=== PATIENT | female | born 1955 | race Caucasian/White ===

== ENCOUNTER 2016-10-29 17:29 | Inpatient (IN) | payer BC ==
--- NOTE | 2016-10-29 17:59 | ED ---
General Adult HPI - General Chief complaint: Trauma Stated complaint: kicked by horse Time Seen by Provider: 10/29/16 17:40 Source: patient Mode of arrival: wheelchair Limitations: no limitations - History of Present Illness Initial comments: 61-year-old female presents with shortness of breath and pain in the right posterior chest. States about 40 minutes prior to arrival she was kicked by a horse once or twice. She is having some difficulty breathing and some diaphoresis. No focal numbness or weakness. No nausea no vomiting. No other injury elsewhere. History of hypertension and hypothyroidism. - Related Data Home Medications Medication Instructions Recorded Confirmed Atorvastatin [Lipitor] 10 mg PO HS 10/29/16 10/29/16 Escitalopram [Lexapro] 5 mg PO DAILY 10/29/16 10/29/16 Estradiol/Norethindrone Acet 1 patch TRANSDERM MOTH 10/29/16 10/29/16 [Combipatch 0.05-0.14 mg Ptch] Folic Acid 1 mg PO DAILY 10/29/16 10/29/16 Levothyroxine Sodium [Synthroid] 112 mcg PO DAILY 10/29/16 10/29/16 Liothyronine Sodium [Cytomel] 5 mcg PO DAILY 10/29/16 10/29/16 Losartan [Cozaar] 50 mg PO HS 10/29/16 10/29/16 Losartan [Cozaar] 75 mg PO DAILY 10/29/16 10/29/16 Montelukast [Singulair] 10 mg PO DAILY 10/29/16 10/29/16 Triamterene-Hctz 37.5-25Mg 1 cap PO DAILY 10/29/16 10/29/16 [Dyazide 37.5-25 Capsule] Zolpidem [Ambien] 5 mg PO HS PRN 10/29/16 10/29/16 Allergies Allergy/AdvReac Type Severity Reaction Status Date / Time Penicillins Allergy Rash/Hives Verified 10/29/16 18:22 Review of Systems ROS Statement: Those systems with pertinent positive or pertinent negative responses have been documented in the HPI. ROS Other: All systems not noted in ROS Statement are negative. Constitutional: Denies: fever, chills Eyes: Denies: eye pain ENT: Denies: ear pain, throat pain Respiratory: Reports: dyspnea. Denies: cough, wheezes Cardiovascular: Reports: chest pain. Denies: edema Gastrointestinal: Denies: abdominal pain, nausea, vomiting Genitourinary: Denies: urgency, dysuria Skin: Denies: rash Neurological: Denies: headache Psychiatric: Denies: anxiety, depression Hematological/Lymphatic: Denies: easy bleeding, easy bruising Past Medical History Past Medical History: Hyperlipidemia, Hypertension, Thyroid Disorder History of Any Multi-Drug Resistant Organisms: None Reported Past Surgical History: Orthopedic Surgery Past Psychological History: No Psychological Hx Reported Smoking Status: Never smoker Past Alcohol Use History: Occasional Past Drug Use History: None Reported General Exam Limitations: no limitations General appearance: alert Head exam: Present: atraumatic Eye exam: Present: PERRL, EOMI ENT exam: Present: normal oropharynx, mucous membranes moist, TM's normal bilaterally Respiratory exam: Present: decreased breath sounds (On right few crackles present) Cardiovascular Exam: Present: regular rate, normal heart sounds GI/Abdominal exam: Present: soft. Absent: tenderness Neurological exam: Present: alert, CN II-XII intact Psychiatric exam: Present: normal affect, normal mood Skin exam: Present: warm, dry, other (Large bruise area on the upper right posterior chest wall and there appears to be 2 areas one just at the upper level of the scapula.) Course Vital Signs 10/29/16 10/29/16 10/29/16 17:31 17:56 18:15 Temperature 97.7 F Pulse Rate 67 60 Respiratory 20 24 22 Rate Blood Pressure 111/63 109/55 O2 Sat by Pulse 94 L 98 Oximetry 10/29/16 10/29/16 10/29/16 18:48 19:13 19:57 Temperature Pulse Rate 66 62 73 Respiratory 18 18 20 Rate Blood Pressure 115/66 112/63 144/74 O2 Sat by Pulse 100 98 96 Oximetry 10/29/16 20:00 Temperature Pulse Rate 62 Respiratory 18 Rate Blood Pressure 139/72 O2 Sat by Pulse 98 Oximetry Procedures - Chest Tube Insertion Consent Obtained: verbal consent Time Out Performed: No Indication: Pneumothorax Placed on monitor/pulse oximetry: Yes Site Prep: Chloroprep Local Anesthesia: Lidocaine 1% Insertion Site: 5th Intercostal Space, Midaxillary Scalpel: #10 Open into Pleural Space Using: Trocar, Hemostats Tube Size (Greek): Other (24) Returns: Other (No air blood return) Type of Suture: Polyester Dressing Applied: Petroleum Gauze Attached to Suction: Yes Type of Suction: Pleuravac Repeat X-ray Results: Other (Lungs appears to be mostly inflated except for about 10% review with radiologist and the CAT scan is ordered regarding potential other trauma) Patient Tolerated Procedure: well Medical Decision Making - Medical Decision Making Dr. Jade was here to see the patient chest tube was placed on from 40% about 15% pneumothorax Dr. Jade spoke with Dr. Martin, observe most likely will reexpand he will review tomorrow. Patient will be admitted. - Lab Data Result diagrams: 10/29/16 17:45 10/29/16 17:45 Lab Results 10/29/16 10/29/16 10/29/16 Range/Units 17:45 17:45 17:45 WBC 12.3 H (3.8-10.6) k/uL RBC 4.69 (3.80-5.40) m/uL Hgb 14.7 (11.4-16.0) gm/dL Hct 43.5 (34.0-46.0) % MCV 92.8 (80.0-100.0) fL MCH 31.4 (25.0-35.0) pg MCHC 33.9 (31.0-37.0) g/dL RDW 12.5 (11.5-15.5) % Plt Count 384 (150-450) k/uL Neutrophils % 59 % Lymphocytes % 32 % Monocytes % 4 % Eosinophils % 2 % Basophils % 1 % Neutrophils # 7.2 (1.3-7.7) k/uL Lymphocytes # 4.0 (1.0-4.8) k/uL Monocytes # 0.5 (0-1.0) k/uL Eosinophils # 0.2 (0-0.7) k/uL Basophils # 0.1 (0-0.2) k/uL Sodium 141 (137-145) mmol/L Potassium 3.4 L (3.5-5.1) mmol/L Chloride 103 (98-107) mmol/L Carbon Dioxide 25 (22-30) mmol/L Anion Gap 13 mmol/L BUN 24 H (7-17) mg/dL Creatinine 1.02 (0.52-1.04) mg/dL Est GFR (MDRD) Af Amer >60 (>60 ml/min/1.73 sqM) Est GFR (MDRD) Non-Af 55 (>60 ml/min/1.73 sqM) Glucose 112 H (74-99) mg/dL Calcium 9.6 (8.4-10.2) mg/dL Total Bilirubin 0.6 (0.2-1.3) mg/dL AST 30 (14-36) U/L ALT 42 (9-52) U/L Alkaline Phosphatase 68 (38-126) U/L Total Protein 7.5 (6.3-8.2) g/dL Albumin 4.7 (3.5-5.0) g/dL Blood Type B Positive Blood Type Confirm Blood Type Recheck CABO Indicated Antibody Screen NEGATIVE Spec Expiration Date 11/01/2016 - 234410/29/16 Range/Units 19:05 WBC (3.8-10.6) k/uL RBC (3.80-5.40) m/uL Hgb (11.4-16.0) gm/dL Hct (34.0-46.0) % MCV (80.0-100.0) fL MCH (25.0-35.0) pg MCHC (31.0-37.0) g/dL RDW (11.5-15.5) % Plt Count (150-450) k/uL Neutrophils % % Lymphocytes % % Monocytes % % Eosinophils % % Basophils % % Neutrophils # (1.3-7.7) k/uL Lymphocytes # (1.0-4.8) k/uL Monocytes # (0-1.0) k/uL Eosinophils # (0-0.7) k/uL Basophils # (0-0.2) k/uL Sodium (137-145) mmol/L Potassium (3.5-5.1) mmol/L Chloride (98-107) mmol/L Carbon Dioxide (22-30) mmol/L Anion Gap mmol/L BUN (7-17) mg/dL Creatinine (0.52-1.04) mg/dL Est GFR (MDRD) Af Amer (>60 ml/min/1.73 sqM) Est GFR (MDRD) Non-Af (>60 ml/min/1.73 sqM) Glucose (74-99) mg/dL Calcium (8.4-10.2) mg/dL Total Bilirubin (0.2-1.3) mg/dL AST (14-36) U/L ALT (9-52) U/L Alkaline Phosphatase (38-126) U/L Total Protein (6.3-8.2) g/dL Albumin (3.5-5.0) g/dL Blood Type Blood Type Confirm B Positive Blood Type Recheck Antibody Screen Spec Expiration Date - EKG Data -: EKG Interpreted by Me 10/29/16 18:21 EKG 10/30/1999 1718. Ventricular rate 61 bpm, MO interval 140 ms, QRS duration 96 ms, QT interval 426 ms normal sinus rhythm rightward axis - Radiology Data Radiology results: report reviewed, image reviewed Interpreted by me: 25-30% pneumothorax on the right 30-40% pneumothorax on the right Follow-up residual pneumothorax about 15% Computed tomography scan there is persistent small right anterior nondependent pneumothorax estimated 10-15%. Despite chest tube placement there is right greater than left bibasilar atelectasis there is acute displaced right posterior ninth rib fracture and acute nondisplaced right posterior 10th rib fracture Critical Care Time Critical Care Time: Yes Total Critical Care Time: 60 Disposition Clinical Impression: Pneumothorax, Ribs, multiple fractures Disposition: ADMITTED IP TO THIS [facility] Condition: Good Referrals: Fatimah He MD [Primary Care Provider] - 1-2 days Time of Disposition: 20:50
[2016-10-29] MEDS: ONDANSETRON 4 MG/2 ML VIAL IVP STA ×2 (18:13→18:28)
[2016-10-29] MEDS: HYDROmorphone 1 MG/ML 1 ML SYRINGE IVP STA ×3 (18:14→20:04)
--- NOTE | 2016-10-29 18:24 | XR ---
EXAMINATION TYPE: XR chest 1V portable DATE OF EXAM: 10/29/2016 COMPARISON: NONE HISTORY: Chest pain after trauma injury. TECHNIQUE: Single AP portable frontal upright view of the chest is obtained. FINDINGS: There is moderate right apical pneumothorax estimated 30-40%. There is bibasilar opacity f elt to reflect atelectasis and/or infiltrate. No distinct mediastinal shift is seen. Cardiac silhouet te size is upper limits of normal. The osseous structures are somewhat demineralized. IMPRESSION: Fairly moderate size right apical pneumothorax without mediastinal shift. Consider CT co rrelation to evaluate for displaced rib fractures. Critical results communicated to ordering ER physician via telephone at time of dictation.
[2016-10-29 18:27] LABS: Basophils # (A) 0.1 k/uL (0-0.2); Basophils % (A) 1 %; CH 31.5; CHCM 34.1; Eosinophils # (A) 0.2 k/uL (0-0.7); Eosinophils % (A) 2 %; HCT 43.5 % (34.0-46.0); HDW 2.39; HGB 14.7 gm/dL (11.4-16.0); Luc # (Auto) 0.28; Luc % (Auto) 2; Lymphocytes % (A) 32 %; MCH 31.4 pg (25.0-35.0); MCHC 33.9 g/dL (31.0-37.0); MCV 92.8 fL (80.0-100.0); Mean Platelet Volume 8.2; Monocytes # (A) 0.5 k/uL (0-1.0); Monocytes % (A) 4 %; Neutrophils # (A) 7.2 k/uL (1.3-7.7); Neutrophils % (A) 59 %; RBC 4.69 m/uL (3.80-5.40); RDW 12.5 % (11.5-15.5); WBC 12.3 k/uL (3.8-10.6); WBC (Perox) 11.73
[2016-10-29 18:36] LABS: ALT 42 U/L (9-52); AST 30 U/L (14-36); Alkaline Phosphatase 68 U/L (38-126); Anion Gap 13 mmol/L; Blood Urea Nitrogen 24 mg/dL (7-17); Calcium 9.6 mg/dL (8.4-10.2); Carbon Dioxide 25 mmol/L (22-30); Chloride 103 mmol/L (98-107); Glucose 112 mg/dL (74-99); Non-African American GFR(MDRD) 55 (>60 ml/min/1.73 sqM); Potassium 3.4 mmol/L (3.5-5.1); Sodium 141 mmol/L (137-145); Total Bilirubin 0.6 mg/dL (0.2-1.3); Total Protein 7.5 g/dL (6.3-8.2)
[2016-10-29] MEDS ORDERED: METOCLOPRAMIDE 5 MG/ML 2 ML VIAL IVP STA (19:26)
[2016-10-29] MEDS ORDERED: RX INFO: IV CONTRAST WAS GIVEN 1 EACH MISC MISCELLANE PRN (19:28)
--- NOTE | 2016-10-29 19:46 | XR ---
EXAMINATION TYPE: XR chest 1V portable DATE OF EXAM: 10/29/2016 COMPARISON: Chest x-ray earlier today HISTORY: Chest tube placement TECHNIQUE: Single AP portable frontal upright view of the chest is obtained. FINDINGS: There is new right midlung chest tube. There is persistent small right apical pneumothorax improved after chest tube placement. There is persistent patchy bibasilar atelectasis. No mediastina l shift is seen. Cardiac silhouette size is stable and upper limits of normal. Visualized osseous str uctures are intact. IMPRESSION: New right midlung chest tube with persistent right apical pneumothorax diminished in siz e after chest tube placement.
--- NOTE | 2016-10-29 20:03 | CT ---
EXAMINATION TYPE: CT chest w con DATE OF EXAM: 10/29/2016 COMPARISON: Chest x-rays earlier today HISTORY: Right sided injury from a horse kick injury, traumatic pneumothorax. CT DLP: 156.6 mGycm. Automated Exposure Control for Dose Reduction was Utilized. TECHNIQUE: CT scan of the thorax is performed following with IV Contrast, patient injected with 80 m L of Visipaque 320. FINDINGS: LUNGS: There is posterior right midlung chest tube. There is persistent anterior small to moderate-si zed pneumothorax despite chest tube placement estimated 10-15% seen best on sagittal images. There is right basilar atelectasis. There is patchy posterior left basilar atelectasis. No mediastinal shift is seen. No pleural effusion is noted. Tracheobronchial tree is patent. MEDIASTINUM: There are no greater than 1 cm hilar or mediastinal lymph nodes. No pericardial effusi on is seen. Heart size is upper limits of normal. OTHER: There are simple appearing 1.5 cm cyst posteriorly mid pole level right kidney on axial image 66. There is acute displaced fracture posterior right ninth ribs seen best on coronal image 62. There is acute minimally displaced fracture involving posterior right 10th rib seen on coronal image 64. Small amount of adjacent subcutaneous gas is noted at this level. IMPRESSION: There is persistent small right anterior or nondependent pneumothorax estimated 10-15% de spite chest tube placement. There is right greater than left bibasilar atelectasis. There is acute di splaced right posterior ninth rib fracture and acute nondisplaced right posterior 10th rib fracture i dentified.
[2016-10-29] MEDS ORDERED: NALOXONE 0.4 MG/ML 1 ML VIAL IV PRN (20:51)
[2016-10-29] MEDS ORDERED: ONDANSETRON 4 MG/2 ML VIAL IVP PRN (20:51)
[2016-10-29] MEDS ORDERED: HYDROmorphone 1 MG/ML 1 ML SYRINGE IV PRN (20:51)
[2016-10-29] MEDS ORDERED: ZOLPIDEM 5 MG TAB PO PRN (20:54)
--- NOTE | 2016-10-29 21:12 | P.GSHP ---
History of Present Illness H&P Date: 10/29/16 Chief Complaint: Right posterior chest pain now post the injury. The patient is a 61-year-old white female who within an hour prior to coming to the emergency room was ventrally kicked by a horse on her back. She felt quite severe pain in the area was brought to the emergency room. Did have some shortness of breath. Was found to have about 30-40% right pneumothorax. Chest tube was placed in the ER. Her pneumothorax reduced to about 10-15%. Her respiratory status markedly improved. She is admitted for further observation. CT of the chest showed no other abnormalities other then displaced fracture of the ninth rib and the undisplaced fracture of the right 10th rib posteriorly. Past history. Positive for hypothyroidism. Mild hypertension. Anxiety. Transvaginal removal of uterine fibroid. Arthroscopic knee surgery. Otherwise fairly healthy. Patient is very active. Exercises. Social history. He smoked. Drinks alcohol occasionally socially. System review otherwise negative other than above. Some chest pain improved shortness of breath. No cardiac or respiratory problems in the past. Mild hypertension on Cozaar. Parathyroidism for which she takes replacement therapy. Also on estrogen patch and antidepressant medication. Examination the patient is well-built well-nourished in no acute distress. Has a chest tube in place. Eating fairly comfortably vitals are stable. Temperature is normal. Color is good. Hydration borderline in that her mucous membranes are dry. Neck supple no mass or subcu emphysema. The symmetrical other than a right chest tube. 2 emphysema. Good the air movement bilaterally. Regular rhythm no murmurs. Abdomen is fairly soft nontender no masses or organomegaly or hernias noted. Extremities normal. [employer] grossly intact. Impression. Right the pneumothorax status post kicked by a horse. Right the 19th at the rib fractures. History of mild hypertension. Recommendation. She will be admitted for observation. Encourage incentive spirometry and deep breathing. Repeat a chest x-ray in the morning. We'll consult the obtained with the Dr. Bates the thoracic surgery. Close observation. Analgesia. Ice packs. Past Medical History Past Medical History: Hyperlipidemia, Hypertension, Thyroid Disorder History of Any Multi-Drug Resistant Organisms: None Reported Past Surgical History: Orthopedic Surgery Past Psychological History: No Psychological Hx Reported Smoking Status: Never smoker Past Alcohol Use History: Occasional Past Drug Use History: None Reported Medications and Allergies Home Medications Medication Instructions Recorded Confirmed Type Atorvastatin [Lipitor] 10 mg PO HS 10/29/16 10/29/16 History Escitalopram [Lexapro] 5 mg PO DAILY 10/29/16 10/29/16 History Estradiol/Norethindrone Acet 1 patch TRANSDERM MOTH 10/29/16 10/29/16 History [Combipatch 0.05-0.14 mg Ptch] Folic Acid 1 mg PO DAILY 10/29/16 10/29/16 History Levothyroxine Sodium [Synthroid] 112 mcg PO DAILY 10/29/16 10/29/16 History Liothyronine Sodium [Cytomel] 5 mcg PO DAILY 10/29/16 10/29/16 History Losartan [Cozaar] 50 mg PO HS 10/29/16 10/29/16 History Losartan [Cozaar] 75 mg PO DAILY 10/29/16 10/29/16 History Montelukast [Singulair] 10 mg PO DAILY 10/29/16 10/29/16 History Triamterene-Hctz 37.5-25Mg 1 cap PO DAILY 10/29/16 10/29/16 History [Dyazide 37.5-25 Capsule] Zolpidem [Ambien] 5 mg PO HS PRN 10/29/16 10/29/16 History Allergies Allergy/AdvReac Type Severity Reaction Status Date / Time Penicillins Allergy Rash/Hives Verified 10/29/16 18:22 Surgical - Exam Vital Signs Temp Pulse Resp BP Pulse Ox 97.7 F 67 20 111/63 94 L 10/29/16 17:31 10/29/16 17:31 10/29/16 17:31 10/29/16 17:31 10/29/16 17:31 Results - Labs 10/29/16 17:45 10/29/16 17:45 Abnormal Lab Results - Last 24 Hours (Table) 10/29/16 10/29/16 Range/Units 17:45 17:45 WBC 12.3 H (3.8-10.6) k/uL Potassium 3.4 L (3.5-5.1) mmol/L BUN 24 H (7-17) mg/dL Glucose 112 H (74-99) mg/dL Diabetes panel 10/29/16 Range/Units 17:45 Sodium 141 (137-145) mmol/L Potassium 3.4 L (3.5-5.1) mmol/L Chloride 103 (98-107) mmol/L Carbon Dioxide 25 (22-30) mmol/L BUN 24 H (7-17) mg/dL Creatinine 1.02 (0.52-1.04) mg/dL Glucose 112 H (74-99) mg/dL Calcium 9.6 (8.4-10.2) mg/dL AST 30 (14-36) U/L ALT 42 (9-52) U/L Alkaline Phosphatase 68 (38-126) U/L Total Protein 7.5 (6.3-8.2) g/dL Albumin 4.7 (3.5-5.0) g/dL Calcium panel 10/29/16 Range/Units 17:45 Calcium 9.6 (8.4-10.2) mg/dL Albumin 4.7 (3.5-5.0) g/dL Pituitary panel 10/29/16 Range/Units 17:45 Sodium 141 (137-145) mmol/L Potassium 3.4 L (3.5-5.1) mmol/L Chloride 103 (98-107) mmol/L Carbon Dioxide 25 (22-30) mmol/L BUN 24 H (7-17) mg/dL Creatinine 1.02 (0.52-1.04) mg/dL Glucose 112 H (74-99) mg/dL Calcium 9.6 (8.4-10.2) mg/dL Adrenal panel 10/29/16 Range/Units 17:45 Sodium 141 (137-145) mmol/L Potassium 3.4 L (3.5-5.1) mmol/L Chloride 103 (98-107) mmol/L Carbon Dioxide 25 (22-30) mmol/L BUN 24 H (7-17) mg/dL Creatinine 1.02 (0.52-1.04) mg/dL Glucose 112 H (74-99) mg/dL Calcium 9.6 (8.4-10.2) mg/dL Total Bilirubin 0.6 (0.2-1.3) mg/dL AST 30 (14-36) U/L ALT 42 (9-52) U/L Alkaline Phosphatase 68 (38-126) U/L Total Protein 7.5 (6.3-8.2) g/dL Albumin 4.7 (3.5-5.0) g/dL
[2016-10-29] MEDS ORDERED: D5-0.45% NACL WITH KCL 20MEQ/L 1,000 ML IV SCH (21:30)
[2016-10-29] MEDS: HYDROmorphone 1 MG/ML 1 ML SYRINGE IVP PRN (22:08)
[2016-10-29] MEDS: SODIUM CHLORIDE 0.9% 1,000 ML IV SCH (22:40)
[2016-10-29] MEDS: HEPARIN SODIUM,PORCINE 5,000 UNIT/ML 1 ML VIAL SQ SCH (23:23)
[2016-10-29] MEDS: ATORVASTATIN 10 MG TAB PO SCH (23:23)
[2016-10-29] MEDS: FAMOTIDINE 20 MG/2 ML VIAL IV SCH (23:23)
[2016-10-29] MEDS: LOSARTAN 50 MG TAB PO SCH (23:23)
[2016-10-29] MEDS: KETOROLAC 30 MG/ML 1 ML VIAL IVP SCH (23:57)
[2016-10-30] MEDS: ONDANSETRON 4 MG/2 ML VIAL IVP PRN ×3 (02:11→19:51)
[2016-10-30] MEDS: HYDROmorphone 1 MG/ML 1 ML SYRINGE IVP PRN ×7 (02:12→23:42)
[2016-10-30] MEDS: LEVOTHYROXINE 112 MCG TAB PO SCH (06:35)
[2016-10-30] MEDS: KETOROLAC 30 MG/ML 1 ML VIAL IVP SCH ×2 (06:35→14:00)
[2016-10-30 06:47] LABS: Basophils % (A) 0 %; CH 31.7; CHCM 33.9; Eosinophils % (A) 0 %; HDW 2.33; HGB 12.8 gm/dL (11.4-16.0); Luc # (Auto) 0.14; Luc % (Auto) 1; Lymphocytes # (A) 1.4 k/uL (1.0-4.8); Lymphocytes % (A) 13 %; MCH 30.9 pg (25.0-35.0); MCHC 32.9 g/dL (31.0-37.0); MCV 93.9 fL (80.0-100.0); Mean Platelet Volume 7.6; Monocytes # (A) 0.7 k/uL (0-1.0); Monocytes % (A) 6 %; Neutrophils # (A) 8.4 k/uL (1.3-7.7); Neutrophils % (A) 79 %; RBC 4.16 m/uL (3.80-5.40); RDW 12.6 % (11.5-15.5); WBC 10.6 k/uL (3.8-10.6); WBC (Perox) 11.41
[2016-10-30 07:01] LABS: Anion Gap 9 mmol/L; Blood Urea Nitrogen 16 mg/dL (7-17); Calcium 8.6 mg/dL (8.4-10.2); Carbon Dioxide 26 mmol/L (22-30); Chloride 102 mmol/L (98-107); Glucose 105 mg/dL (74-99); Non-African American GFR(MDRD) 57 (>60 ml/min/1.73 sqM); Potassium 3.3 mmol/L (3.5-5.1); Sodium 137 mmol/L (137-145)
--- NOTE | 2016-10-30 07:11 | XR ---
EXAMINATION TYPE: XR chest 2V DATE OF EXAM: 10/30/2016 COMPARISON: Chest x-rays and CT chest from yesterday HISTORY: Left-sided pneumothorax with chest tube progress study TECHNIQUE: Frontal and lateral views of the chest are obtained. FINDINGS: There is stable posterior right midlung chest tube with persistent small apical pneumothor ax. Adjacent subcutaneous emphysema is noted. There is persistent patchy bibasilar atelectasis. No me diastinal shift is seen. Cardiac silhouette size is stable and within normal limits. Visualized osseo us structures are intact. Right sided rib fractures are seen better on recent CT. IMPRESSION: Overall stable findings, persistent small right apical pneumothorax despite chest tube p lacement. Patchy bibasilar atelectasis redemonstrated.
[2016-10-30] MEDS ORDERED: Potassium Replacement Protocol 1 EACH MISC MISCELLANE PRN (08:21)
[2016-10-30] MEDS: LIOTHYRONINE SODIUM 5 MCG TAB PO SCH (09:16)
[2016-10-30] MEDS: ESCITALOPRAM 5 MG TAB PO SCH (09:16)
[2016-10-30] MEDS: POTASSIUM CHLORIDE ER 20 MEQ TAB.ER PO SCH ×2 (09:16→10:05)
[2016-10-30] MEDS: HEPARIN SODIUM,PORCINE 5,000 UNIT/ML 1 ML VIAL SQ SCH ×2 (09:17→20:45)
[2016-10-30] MEDS: FAMOTIDINE 20 MG/2 ML VIAL IV SCH ×2 (09:17→20:45)
[2016-10-30] MEDS: MONTELUKAST 10 MG TAB PO SCH (09:18)
[2016-10-30] MEDS: TRIAMTERENE-HCTZ 37.5-25MG 1 EACH CAP PO SCH (09:18)
[2016-10-30] MEDS ORDERED: HYDROcodone/APAP 5-325MG 1 EACH TAB PO PRN (10:04)
[2016-10-30] MEDS ORDERED: IBUPROFEN 600 MG TAB PO PRN (10:05)
--- NOTE | 2016-10-30 10:17 | P.PN ---
Progress Note - Text The patient remained stable. She states she feels about 80% better than yesterday in terms of pain in her breathing. She felt a little hungry and wanted to try some regular food. On examination the patient is awake alert cheerful in no distress. The bruising on her back the is stable somewhat improved. Still tenderness tear in the area of the rib fractures. Chest tube is in place. She seems to be breathing fairly comfortably. Chest x-ray shows a residual of about 10% to 15% apical pneumothorax on the right side. Some bibasilar atelectasis. Impression. Post traumatic right pneumothorax improve with the fractures of the ninth and 10th ribs on the right. Recommendation. We will defer further management of the chest tube to the thoracic surgery. Continued the close monitoring. We will advance her diet.
[2016-10-30] MEDS: SODIUM CHLORIDE 0.9% 1,000 ML IV SCH (11:31)
[2016-10-30] MEDS: FOLIC ACID 1 MG TAB PO SCH (11:31)
--- NOTE | 2016-10-30 12:43 | P.GSCN ---
History of Present Illness Consult date: 10/30/16 Reason for Consult: Right pneumothorax status post trauma after being kicked by a worse. Requesting physician: Howie Jade History of present illness: This is 61-year-old female patient who is followed by Dr. Fatimah He on an outpatient basis. The patient has past medical history of hypertension, hyperlipidemia, hypothyroidism, and history of West Nile virus. Yesterday afternoon about 5 PM she was putting one of he horses back into its stable, when the horse got spooked and kicked her to the right posterior chest. There was another horse in the stable who also got spooked and that horse kicked her to her right mid thigh. She subsequently felt some immediate shortness of breath and severe pain to her right chest and was subsequently brought to the emergency department here at [facility]. The patient underwent a 12-lead EKG which showed normal sinus rhythm with a heart rate of 61 , she also had a chest x-ray completed which showed a moderate-sized right apical pneumothorax without mediastinal shift. Due to the findings of pneumothorax a right pleural chest tube was placed in the emergency department. For further evaluation the patient underwent a computed tomography scan of her chest which demonstrated a persistent small right anterior apical pneumothorax of about 10-15% despite the chest tube placement, and an acute displaced fracture posterior right ninth rib. Due to her persistent pneumothorax Dr. Bates from thoracic surgery was requested to evaluate the patient. Review of Systems A 14 point review of systems was completed and was negative except as noted in HPI. Past Medical History Past Medical History: Hyperlipidemia, Hypertension, Thyroid Disorder Additional Past Medical History / Comment(s): History of West Nile virus History of Any Multi-Drug Resistant Organisms: None Reported Past Surgical History: Orthopedic Surgery (Right ACL repair and 1998, fibroid [employer] surgery at age 24, history of nasal surgery.), Tonsillectomy Past Anesthesia/Blood Transfusion Reactions: No Reported Reaction Past Psychological History: No Psychological Hx Reported Smoking Status: Never smoker Past Alcohol Use History: Occasional (1-2 drinks a week.) Past Drug Use History: None Reported - Past Family History Father Additional Family Medical History / Comment(s): History of myasthenia gravis Mother Family Medical History: Cancer (Breast cancer), Thyroid Disorder (Graves' disease) Medications and Allergies Home Medications Medication Instructions Recorded Confirmed Type Atorvastatin [Lipitor] 10 mg PO HS 10/29/16 10/29/16 History Escitalopram [Lexapro] 5 mg PO DAILY 10/29/16 10/29/16 History Estradiol/Norethindrone Acet 1 patch TRANSDERM MOTH 10/29/16 10/29/16 History [Combipatch 0.05-0.14 mg Ptch] Folic Acid 1 mg PO DAILY 10/29/16 10/29/16 History Levothyroxine Sodium [Synthroid] 112 mcg PO DAILY 10/29/16 10/29/16 History Liothyronine Sodium [Cytomel] 5 mcg PO DAILY 10/29/16 10/29/16 History Losartan [Cozaar] 50 mg PO HS 10/29/16 10/29/16 History Losartan [Cozaar] 75 mg PO DAILY 10/29/16 10/29/16 History Montelukast [Singulair] 10 mg PO DAILY 10/29/16 10/29/16 History Triamterene-Hctz 37.5-25Mg 1 cap PO DAILY 10/29/16 10/29/16 History [Dyazide 37.5-25 Capsule] Zolpidem [Ambien] 5 mg PO HS PRN 10/29/16 10/29/16 History Allergies Allergy/AdvReac Type Severity Reaction Status Date / Time Penicillins Allergy Rash/Hives Verified 10/29/16 18:22 Surgical - Exam Vital Signs Temp Pulse Resp BP Pulse Ox 97.7 F 67 20 111/63 94 L 10/29/16 17:31 10/29/16 17:31 10/29/16 17:31 10/29/16 17:31 10/29/16 17:31 - General well developed, well nourished, no distress, moderate pain (To right chest with deep breathing.) - Eyes PERRL, normal ocular movement - ENT normal pinna, normal nares, no congestion - Neck no masses, no bruits, trachea midline, no lymphadectomy, no venous distension - Respiratory Respirations are symmetrical and unlabored. Essentially clear throughout, diminished her bilateral bases right greater than left. She is tolerating 2000 mL on her incentive spirometry. Encouraged her to use her incentive spirometry every hour while awake and deep breathing and coughing. clear to auscultation - Cardiovascular Regular rhythm and rate, S1-S2, negative for S3, gallop or murmur. Remote telemetry showing normal sinus rhythm heart rate 60. Knee-high [place] hose and sequential compression devices in place to bilateral lower extremities. - Abdomen Nausea. Abdomen: soft, tender, bowel sounds (to all 4 abdominal quadrants) - Genitourinary Deferred - Rectum Deferred - Integumentary There is a reddened area in the shape of a horse on her right back, and her right lateral mid thigh. No drainage noted. - Neurologic normal coordination, normal sensation - Musculoskeletal normal gait (She has been up ambulating to the bathroom.), normal posture - Psychiatric oriented to time, oriented to person, oriented to place, speech is normal, memory intact Results - Labs 10/30/16 06:21 10/30/16 06:21 Abnormal Lab Results - Last 24 Hours (Table) 10/29/16 10/29/16 10/30/16 Range/Units 17:45 17:45 06:21 WBC 12.3 H (3.8-10.6) k/uL Neutrophils # 8.4 H (1.3-7.7) k/uL Potassium 3.4 L (3.5-5.1) mmol/L BUN 24 H (7-17) mg/dL Glucose 112 H (74-99) mg/dL 10/30/16 Range/Units 06:21 WBC (3.8-10.6) k/uL Neutrophils # (1.3-7.7) k/uL Potassium 3.3 L (3.5-5.1) mmol/L BUN (7-17) mg/dL Glucose 105 H (74-99) mg/dL Diabetes panel 10/29/16 10/30/16 Range/Units 17:45 06:21 Sodium 141 137 (137-145) mmol/L Potassium 3.4 L 3.3 L (3.5-5.1) mmol/L Chloride 103 102 (98-107) mmol/L Carbon Dioxide 25 26 (22-30) mmol/L BUN 24 H 16 (7-17) mg/dL Creatinine 1.02 1.00 (0.52-1.04) mg/dL Glucose 112 H 105 H (74-99) mg/dL Calcium 9.6 8.6 (8.4-10.2) mg/dL AST 30 (14-36) U/L ALT 42 (9-52) U/L Alkaline Phosphatase 68 (38-126) U/L Total Protein 7.5 (6.3-8.2) g/dL Albumin 4.7 (3.5-5.0) g/dL Calcium panel 10/29/16 10/30/16 Range/Units 17:45 06:21 Calcium 9.6 8.6 (8.4-10.2) mg/dL Albumin 4.7 (3.5-5.0) g/dL Pituitary panel 10/29/16 10/30/16 Range/Units 17:45 06:21 Sodium 141 137 (137-145) mmol/L Potassium 3.4 L 3.3 L (3.5-5.1) mmol/L Chloride 103 102 (98-107) mmol/L Carbon Dioxide 25 26 (22-30) mmol/L BUN 24 H 16 (7-17) mg/dL Creatinine 1.02 1.00 (0.52-1.04) mg/dL Glucose 112 H 105 H (74-99) mg/dL Calcium 9.6 8.6 (8.4-10.2) mg/dL Adrenal panel 10/29/16 10/30/16 Range/Units 17:45 06:21 Sodium 141 137 (137-145) mmol/L Potassium 3.4 L 3.3 L (3.5-5.1) mmol/L Chloride 103 102 (98-107) mmol/L Carbon Dioxide 25 26 (22-30) mmol/L BUN 24 H 16 (7-17) mg/dL Creatinine 1.02 1.00 (0.52-1.04) mg/dL Glucose 112 H 105 H (74-99) mg/dL Calcium 9.6 8.6 (8.4-10.2) mg/dL Total Bilirubin 0.6 (0.2-1.3) mg/dL AST 30 (14-36) U/L ALT 42 (9-52) U/L Alkaline Phosphatase 68 (38-126) U/L Total Protein 7.5 (6.3-8.2) g/dL Albumin 4.7 (3.5-5.0) g/dL - Imaging Chest x-ray: report reviewed, image reviewed CT scan - chest: report reviewed, image reviewed Assessment and Plan (1) Pneumothorax Status: Acute (2) Ribs, multiple fractures Status: Acute (3) Trauma of chest Status: Acute Plan: The patient was seen and examined at the bedside with Dr. Bates. Her chart/ diagnostics were reviewed. Medical management per primary care service. The patient has a persistent right apical pneumothorax and treatment options were discussed with the patient and her family at the bedside in detail. At this time we feel she does not need a second chest tube, we will monitor her pneumothorax closely. Her current chest tube will remain in place at this time and will remain to continuous wall suction. She was encouraged to ambulate in the [place] and continue to use her incentive spirometry every hour while awake. Pain management per her when necessary orders. Her Toradol will be discontinued. We will add Zofran for nausea control. DVT and GI prophylaxis in place. Time with Patient: Greater than 30
--- NOTE | 2016-10-30 13:48 | P.CONS ---
History of Present Illness - Reason for Consult Consult date: 10/30/16 Medical management Requesting physician: Howie Jade - Chief Complaint Right-sided traumatic pneumothorax, hypertension, hyperlipidemia, hypothyro - History of Present Illness 61-year-old female one of Dr. Fatimah He patient who has [employer] house in [place] spend most of the summer and it was known to have history of hypertension, hyperlipidemia, hypothyroidism and previous history of West Nile virus has done well with it. 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 Patient developed immediately having significant shortness of breath with chest pain and tightness become severely worse. She brought to [facility] department at [facility] were was seen and evaluated her wrap the chest x-ray showed a moderate size right apical pneumothorax without mediastinal shift ended up going for CT of the chest with the current finding the emergency physician and up putting a chest tube in drop the pneumothorax to bite 10% only the left the chest tube under negative waterseal and consulted cardiothoracic. Patient had the acute displaced fracture and posterior right ninth rib which would cause a pneumothorax in the first place. No other injury was found at the time. Patient was admitted under Dr. Jade service for trauma and requested consult medicine for medical management. Review of Systems Constitutional: Reports fatigue, Denies as per HPI, Denies anorexia, Denies chills, Denies chronic headaches, Denies chronic pain, Denies daytime sleepiness , Denies fever, Denies lethargy, Denies malaise, Denies night sweats, Denies poor appetite, Denies sweats, Denies weakness, Denies weight gain, Denies weight loss Eyes: bilateral as per HPI Ears: deny: decreased hearing Ears, nose, mouth and throat: Reports nasal congestion, Reports nasal discharge , Reports sinus pressure, Denies as per HPI, Denies ant. neck pain, Denies bleeding gums, Denies dental pain, Denies dysphagia, Denies epistaxis, Denies headache, Denies hoarseness, Denies mouth pain, Denies neck fullness/pressure, Denies neck lump, Denies nose pain, Denies odynophagia, Denies post-nasal drip, Denies sinus pain, Denies swelling in mouth, Denies swelling in throat, Denies sore throat, Denies vertigo, Denies voice changes Cardiovascular: Reports chest pain, Reports decreased exercise tolerance, Reports dyspnea on exertion, Reports high blood pressure, Reports lightheadedness, Reports orthopnea, Denies as per HPI, Denies claudication, Denies edema, Denies irregular heart beat, Denies leg edema, Denies palpitations , Denies paroxysmal nocturnal dyspnea, Denies phlebitis, Denies rapid heart beat , Denies shortness of breath, Denies syncope Respiratory: Reports dyspnea, Reports pain, Reports pain on inspiration, Reports pleurisy, Denies as per HPI, Denies congestion, Denies cough, Denies cough with sputum, Denies excessive sputum, Denies hemoptysis, Denies home oxygen, Denies respiratory infections, Denies sleep apnea, Denies snoring, Denies wheezing Gastrointestinal: Reports bloating, Reports dyspepsia, Reports indigestion, Reports nausea, Denies as per HPI, Denies abdominal pain, Denies belching, Denies BRBPR, Denies change in bowel habits, Denies coffee ground emesis, Denies constipation, Denies diarrhea, Denies early satiety, Denies excessive gas , Denies heartburn, Denies hematemesis, Denies hematochezia, Denies jaundice, Denies lactose intolerance, Denies loss of appetite, Denies melena, Denies vomiting Genitourinary: Denies as per HPI, Denies abnormal vaginal bleeding, Denies decreased libido, Denies difficulty conceiving, Denies difficulty voiding, Denies dysmenorrhea, Denies dyspareunia, Denies dysuria, Denies flank pain, Denies genital sores, Denies hematuria, Denies hot flashes, Denies incomplete emptying, Denies kidney stones, Denies menorrhagia, Denies mixed incontinence, Denies nocturia, Denies pelvic pain, Denies post void dribbling, Denies , Denies prolapse symptoms, Denies stress incontinence, Denies urge incontinence , Denies urgency, Denies urinary frequency, Denies vaginal discharge, Denies vaginal dryness, Denies vaginal itching, Denies vaginal odor Musculoskeletal: Reports limitation of motion, Reports low back pain, Reports muscle cramps, Reports muscle weakness, Reports myalgias, Reports neck pain, Reports neck stiffness, Denies as per HPI, Denies arm numbness/tingling, Denies atrophy, Denies fractures, Denies frequent falls, Denies gait dysfunction, Denies hot joints, Denies leg numbness/tingling, Denies loss of height, Denies morning stiffness, Denies prior amputations, Denies redness of joints, Denies shooting arm pain, Denies shooting leg pain Musculoskeletal: right: hip pain, hip stiffness Integumentary: Denies as per HPI, Denies acne, Denies boils, Denies brittle nails, Denies change in hair/nails, Denies color changes, Denies darkening of skin, Denies depigmentation, Denies dryness, Denies foot/leg ulcers, Denies growths, Denies hirsutism, Denies lesions, Denies onychomycosis, Denies pruritus , Denies rash, Denies sores, Denies striae, Denies unusual bruising, Denies wounds Neurological: Denies as per HPI, Denies aphasia, Denies ataxia, Denies balance difficulties, Denies burning pain, Denies change in mentation, Denies change in smell/taste, Denies change in speech, Denies confusion, Denies convulsions, Denies double vision, Denies gait dysfunction, Denies head injury, Denies headaches, Denies hearing difficulties, Denies lack of coordination, Denies loss of vision, Denies memory loss, Denies migraines, Denies motor disturbance, Denies numbness, Denies paralysis, Denies paresthesias, Denies seizures, Denies sensory deficit, Denies spasticity, Denies syncope, Denies tic, Denies tingling , Denies transient paralysis, Denies tremors, Denies vertigo, Denies weakness, Denies visual changes Psychiatric: Denies as per HPI, Denies anhedonia, Denies anxiety, Denies anxiety attacks, Denies change in appetite, Denies change in libido, Denies change in sleep habits, Denies confusion, Denies depression, Denies difficulty concentrating, Denies disorientation, Denies hallucinations, Denies hopelessness , Denies hypersomnia, Denies insomnia, Denies irritability, Denies memory loss, Denies mood swings, Denies paranoia, Denies sadness/tearfulness, Denies sleep disturbances, Denies suicidal ideation Endocrine: Reports fatigue, Denies as per HPI, Denies cold intolerance, Denies deepening of the voice, Denies excessive sweating, Denies excessive thirst, Denies flushing, Denies heat intolerance, Denies high blood sugars, Denies increase in ring/shoe/hat size, Denies low blood sugars, Denies nocturia, Denies palpitations, Denies polydipsia, Denies polyphagia, Denies polyuria, Denies proptosis, Denies recent glucocorticoid use, Denies thyroid mass, Denies weight change Hematologic/Lymphatic: Denies as per HPI, Denies easy bleeding, Denies easy bruising, Denies lymphadenopathy, Denies lymphedema, Denies thrombophilia Allergic/Immunologic: Denies as per HPI, Denies allergic rhinitis, Denies anaphylaxis, Denies angioedema, Denies gluten intolerance, Denies persistent infections, Denies seasonal allergies, Denies urticaria, Denies wheezing Past Medical History Past Medical History: Hyperlipidemia, Hypertension, Thyroid Disorder History of Any Multi-Drug Resistant Organisms: None Reported Past Surgical History: Orthopedic Surgery Past Anesthesia/Blood Transfusion Reactions: No Reported Reaction Past Psychological History: No Psychological Hx Reported Smoking Status: Never smoker Past Alcohol Use History: Occasional Past Drug Use History: None Reported - Past Family History Father Additional Family Medical History / Comment(s): History of myasthenia gravis Mother Family Medical History: Cancer (Breast cancer), Thyroid Disorder (Graves' disease) Medications and Allergies Home Medications Medication Instructions Recorded Confirmed Type Atorvastatin [Lipitor] 10 mg PO HS 10/29/16 10/29/16 History Escitalopram [Lexapro] 5 mg PO DAILY 10/29/16 10/29/16 History Estradiol/Norethindrone Acet 1 patch TRANSDERM MOTH 10/29/16 10/29/16 History [Combipatch 0.05-0.14 mg Ptch] Folic Acid 1 mg PO DAILY 10/29/16 10/29/16 History Levothyroxine Sodium [Synthroid] 112 mcg PO DAILY 10/29/16 10/29/16 History Liothyronine Sodium [Cytomel] 5 mcg PO DAILY 10/29/16 10/29/16 History Losartan [Cozaar] 50 mg PO HS 10/29/16 10/29/16 History Losartan [Cozaar] 75 mg PO DAILY 10/29/16 10/29/16 History Montelukast [Singulair] 10 mg PO DAILY 10/29/16 10/29/16 History Triamterene-Hctz 37.5-25Mg 1 cap PO DAILY 10/29/16 10/29/16 History [Dyazide 37.5-25 Capsule] Zolpidem [Ambien] 5 mg PO HS PRN 10/29/16 10/29/16 History Allergies Allergy/AdvReac Type Severity Reaction Status Date / Time Penicillins Allergy Rash/Hives Verified 10/29/16 18:22 Physical Exam Vitals: Vital Signs Temp Pulse Pulse Resp BP BP Pulse Ox 10/30/16 04:00 97.1 F L 68 16 124/62 99 10/30/16 00:00 97.6 F 69 16 126/65 100 10/29/16 22:13 98.8 F 68 16 134/66 100 10/29/16 22:00 68 10/29/16 21:30 71 20 146/67 99 10/29/16 20:00 62 18 139/72 98 10/29/16 19:57 73 20 144/74 96 10/29/16 19:13 62 18 112/63 98 10/29/16 18:48 66 18 115/66 100 10/29/16 18:15 60 22 109/55 98 10/29/16 17:56 24 10/29/16 17:31 97.7 F 67 20 111/63 94 L Intake and Output 10/29/16 10/30/16 10/30/16 22:59 06:59 14:59 Intake Total 400 Output Total 900 0 Balance -500 0 Intake: IV 400 Sodium Chloride 0.9% 1, 400 000 ml @ 50 mls/hr IV . Q20H [facility] Rx#:[id number] Output: Chest Tube Drainage 0 Chest Tube Right Upper 0 Mid-Axillary Chest Urine 900 Other: Voiding Method Bedpan Bedpan # Voids 1 Weight 63.503 kg 69 kg - Constitutional General appearance: no average body habitus, cooperative, no disheveled, no mild distress, no morbidly obese, no acute distress, no obese, no severe distress, no thin - EENT Eyes: no abnormal pupil, no anicteric sclerae, no disc margins sharp, no edentulous, no EOMI, no PERRLA, no fundus normal, no photophobia, no dentition normal, no poor dentition, no ptosis, no scleral icterus, normal appearance ENT: no hard of hearing, no hearing grossly normal, no NA/AT, normal oropharynx , no other, no pharyngeal erythema, no thrush, no tonsillar exudates, no tonsillar swelling Ears: bilateral: normal - Neck Neck: no lymphadenopathy, normal ROM, no other, no rigidity, no stridor, no thyromegaly Carotids: bilateral: upstroke normal Thyroid: bilateral: normal size - Respiratory Chest wall area on the posterior lateral side of the rib cage had large scar from bruises related to the chest to trauma from the horse kick side. Respiratory: right: diminished, dullness, bilateral: rhonchi - Cardiovascular Rhythm: regular Heart sounds: normal: S1, S2 - Gastrointestinal General gastrointestinal: no absent bowel sounds, no decreased bowel sounds, no distended, no hepatomegaly, no hyperactive bowel sounds, normal bowel sounds, no organomegaly, no rigid, no scaphoid, soft, no splenomegaly, no tenderness, no umbilical hernia, no ventral hernia - Integumentary Mild bruise and trauma on the right lateral thigh area. Integumentary: no calor, no cellulitis, no cyanotic, no decreased turgor, no flushed, no jaundiced, normal, no normal turgor, pale, no rash, no ulcer - Neurologic Neurologic: CNII-XII intact - Musculoskeletal Musculoskeletal: gait normal, generalized weakness, no strength equal bilaterally, no right sided weakness, no left sided weakness - Psychiatric Psychiatric: A&O x's 3, appropriate affect Results CBC & Chem 7: 10/30/16 06:21 10/30/16 12:22 Labs: Abnormal Lab Results - Last 24 Hours (Table) 10/29/16 10/29/16 10/30/16 Range/Units 17:45 17:45 06:21 WBC 12.3 H (3.8-10.6) k/uL Neutrophils # 8.4 H (1.3-7.7) k/uL Potassium 3.4 L (3.5-5.1) mmol/L BUN 24 H (7-17) mg/dL Glucose 112 H (74-99) mg/dL /16/ Range/Units 06:21 WBC (3.8-10.6) k/uL Neutrophils # (1.3-7.7) k/uL Potassium 3.3 L (3.5-5.1) mmol/L BUN (7-17) mg/dL Glucose 105 H (74-99) mg/dL Assessment and Plan Plan: 1 traumatic pneumothorax: Patient had a chest tube in Dr. Bates was consulted continue to watch the improvement in the chest x-ray from day-to-day basis and hopefully chest tube would come out in 24 hours. 2 multiple rib fracture: Still have pain continue pain management and topical Lidoderm can be use along with incentive spirometry to lower the auto of having atelectasis or infection. 3 hypertension: Has been on losartan 75 mg a morning 50 in the evening and Dyazide once a day. 4 hyperlipidemia: Continue Lipitor daily. 5 hypothyroidism: Has been on Cytomel and Levoxyl resume both medication. 6 depression: Has been on Lexapro. 7 chronic ALLERGY: Patient is using Singulair and decongestant medicine as needed. Pain management: Has been on Dilaudid will add smaller dose of [place] as needed. CODE STATUS: Full code. Dr. Jade thank you very much for the consult if I can be any further help to please let me know.
[2016-10-30] MEDS: LOSARTAN 50 MG TAB PO SCH (20:45)
[2016-10-30] MEDS: ATORVASTATIN 10 MG TAB PO SCH (20:45)
[2016-10-31] MEDS: HYDROmorphone 1 MG/ML 1 ML SYRINGE IVP PRN ×6 (02:11→23:22)
[2016-10-31] MEDS: ONDANSETRON 4 MG/2 ML VIAL IVP PRN ×3 (06:11→23:27)
[2016-10-31] MEDS: LEVOTHYROXINE 112 MCG TAB PO SCH (06:29)
--- NOTE | 2016-10-31 07:38 | XR ---
EXAMINATION TYPE: XR chest 2V DATE OF EXAM: 10/31/2016 COMPARISON: 10/30/2016 HISTORY: Follow-up right-sided pneumothorax. TECHNIQUE: Frontal and lateral views of the chest are obtained. FINDINGS: Right-sided chest tube is unchanged in position. Right apical pneumothorax persists and is slightly s maller in size and is estimated at less than 10%. Subcutaneous air persists along the right lateral c hest wall. The left lung is clear. Mediastinal structures are midline. Heart size is stable. Mediastinal structures are stable and grossly unremarkable. No evidence for hilar prominence. Degenerative changes dorsal spine. IMPRESSION: 1. Right apical pneumothorax persists and is slightly smaller in size and is estimated at less than 10%.
[2016-10-31] MEDS: FAMOTIDINE 20 MG/2 ML VIAL IV SCH ×2 (08:23→08:28)
[2016-10-31] MEDS: TRIAMTERENE-HCTZ 37.5-25MG 1 EACH CAP PO SCH (08:23)
[2016-10-31] MEDS: MONTELUKAST 10 MG TAB PO SCH (08:23)
[2016-10-31] MEDS: LIOTHYRONINE SODIUM 5 MCG TAB PO SCH (08:23)
[2016-10-31] MEDS: HEPARIN SODIUM,PORCINE 5,000 UNIT/ML 1 ML VIAL SQ SCH ×2 (08:23→20:05)
[2016-10-31] MEDS: ESCITALOPRAM 5 MG TAB PO SCH (08:23)
--- NOTE | 2016-10-31 09:09 | P.PN ---
Subjective Principal diagnosis: Right pneumothorax status post trauma after being kicked by a horse. Status post day #2 of right pleural chest tube placement. Patient is alert and oriented 3, no distress noted. The patient states she feels a little feverish this morning. Her current temperature is 98.9F. She reports she was ambulating in the [place] 2-3 times yesterday without difficulty. Objective - Vital Signs Vital signs: Vital Signs Temp 98.9 F 10/31/16 08:00 Pulse 72 10/31/16 08:00 Resp 18 10/31/16 08:00 BP 115/61 10/31/16 08:00 Pulse Ox 95 10/31/16 08:56 Intake & Output 10/30/16 10/31/16 10/31/16 18:59 06:59 18:59 Intake Total 300 240 Output Total 6 409 Balance 294 -409 240 Intake: Oral 300 240 Output: Chest Tube Drainage 6 9 Chest Tube Right Upper 6 9 Mid-Axillary Chest Urine 400 Other: Voiding Method Toilet # Voids 0 - Constitutional General appearance: Present: cooperative, no acute distress, thin - EENT Eyes: Present: PERRLA ENT: Present: hearing grossly normal - Respiratory Details: Respirations are symmetrical and unlabored. Her breath sounds are essentially clear throughout, diminished bilateral bases right greater than left. She is tolerating 2250 on her incentive spirometry. She was encouraged to use her incentive spirometry and deep breathing and coughing every hour while awake. She is currently on room air with her oxygen saturation of 96%. Right pleural chest tube remained intact, negative for air leak. It remains to continuous wall suction -20 cm H2O, 10 mL output the last 24 hours. - Cardiovascular Details: Regular rhythm and rate. Knee-high [place] hose and sequential compression devices in place to bilateral lower extremities. Heart rate: 71 (Remote telemetry showing normal sinus rhythm) Rhythm: regular Heart sounds: normal: S1, S2 (Negative for S3, gallop or murmur.) - Gastrointestinal Gastrointestinal Comment(s): Abdomen is soft, nontender, and nondistended. She is positive bowel sounds in all 4 quadrants. She is tolerating a diet. - Genitourinary Genitourinary Comment(s): Adequate, clear yellow urine. - Integumentary Integumentary Comment(s): She has a horse hoof bruise to her right back just below her shoulder blade. She also has a horse hoof bruise to her right thigh. - Musculoskeletal Musculoskeletal: Present: gait normal, strength equal bilaterally - Psychiatric Psychiatric: Present: A&O x's 3, appropriate affect, intact judgment & insight - Allied health notes Allied health notes reviewed: nursing - Labs CBC & Chem 7: 10/30/16 06:21 10/30/16 12:22 - Imaging and Cardiology Chest x-ray: report reviewed, image reviewed Assessment and Plan (1) Pneumothorax Status: Acute (2) Ribs, multiple fractures Status: Acute (3) Trauma of chest Status: Acute Plan: 1. We will keep her chest tube in place at this time, we will place to her chest tube to waterseal and remove the wall suction. 2. Medical management per primary care. 3. DVT and GI prophylaxis in place. 4. Pain control per as needed orders. 5. Encourage her incentive spirometry use every hour while awake. 6. Repeat chest x-ray in a.m. Time with Patient: Greater than 30
[2016-10-31 09:45] LABS: Appearance,Urine Clear (Clear); Bacteria,Urine Rare /hpf; Bilirubin,Urine Negative (Negative); Glucose,Urine (UA) Negative (Negative); Ketones,Urine Negative (Negative); Leukocyte Esterase,Urine Negative (Negative); Mucus,Urine Rare /hpf; Nitrite,Urine Negative (Negative); Particle Count 1529; Protein,Urine Negative (Negative); RBC,Urine 1 /hpf (0-5); Specific Gravity,Urine 1.004 (1.001-1.035); Squamous Epithelial Cell,Urine 1 /hpf (0-4); UA Billing (MACRO vs. MICRO) MICRO; Urobilinogen,Urine <2.0 mg/dL (<2.0); WBC,Urine 1 /hpf (0-5)
--- NOTE | 2016-10-31 14:07 | P.PN ---
Progress Note - Text The patient is stable. Feels somewhat improved. Less pain and breathing more comfortably. On examination the patient is awake alert cheerful. Vitals are stable. Temperature is normal. The bruise on the back is barely visible now. Also seems to be resolving in the right thigh area. Chest x-ray shows a diminished pneumothorax less than 10% now. Impression trauma with the multiple right rib fractures and pneumothorax slowly resolving with the chest tube. Recommendation continue Dr. Bates's recommendation and observation.
[2016-10-31] MEDS: BISACODYL 5 MG TABLET.DR PO SCH (16:48)
[2016-10-31] MEDS: ATORVASTATIN 10 MG TAB PO SCH (20:05)
[2016-10-31] MEDS: LOSARTAN 50 MG TAB PO SCH (20:06)
[2016-10-31] MEDS: FOLIC ACID 1 MG TAB PO SCH (20:06)
[2016-10-31] MEDS ORDERED: NORETHINDRONE ACET TRANSDERM SCH (20:54)
[2016-10-31] MEDS ORDERED: ESTRADIOL TRANSDERM SCH (20:54)
[2016-10-31] MEDS ORDERED: [UNRECOGNIZED DRUG - OTHER] TRANSDERM SCH (20:54)
[2016-10-31] MEDS: FAMOTIDINE 20 MG TAB PO SCH (22:03)
[2016-11-01] MEDS: HYDROmorphone 1 MG/ML 1 ML SYRINGE IVP PRN ×2 (05:40→09:10)
[2016-11-01 05:46] VITALS: PULSE 74
[2016-11-01] MEDS: LEVOTHYROXINE 112 MCG TAB PO SCH (06:43)
--- NOTE | 2016-11-01 07:16 | XR ---
EXAMINATION TYPE: XR chest 2V DATE OF EXAM: 11/01/2016 HISTORY: right pneumothorax. REFERENCE: Previous study dated 10/31/2016. FINDINGS: A right pleural drain remains in place, unchanged in appearance. The subcutaneous emphysema on the right. There is a small, persistent apical pneumothorax. This is un changed from previous. There is a small right-sided effusion. This has enlarged slightly from previou s. The left lung is clear. The heart is not enlarged. IMPRESSION: 1. SMALL, PERSISTENT APICAL PNEUMOTHORAX. 2. SMALL RIGHT PLEURAL EFFUSION.
--- NOTE | 2016-11-01 08:36 | P.PN ---
Progress Note - Text The patient is afebrile. Vitals are stable. She feels fairly comfortable. Breathing normally. Chest tube was off for suction almost 24 hours now. Exam is otherwise unchanged. Chest x-ray shows a stable pneumothorax or pleural effusion on the right. Impression right the lower rib fractures posteriorly with the pneumothorax now improved and stable. Recommendation per thoracic surgery. SuSpect the chest which will be removed today. From a surgical standpoint she can be discharged
--- NOTE | 2016-11-01 08:45 | P.PN ---
Subjective 61-year-old female one of Dr. Fatimah He patient who has [facility] in [place] spend most of the summer and it was known to have history of hypertension, hyperlipidemia, hypothyroidism and previous history of West Nile virus has done well with it. 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 Patient developed immediately having significant shortness of breath with chest pain and tightness become severely worse. She brought to demurs department at [facility] were was seen and evaluated her wrap the chest x-ray showed a moderate size right apical pneumothorax without mediastinal shift ended up going for CT of the chest with the current finding the emergency physician and up putting a chest tube in drop the pneumothorax to bite 10% only the left the chest tube under negative waterseal and consulted cardiothoracic. Patient had the acute displaced fracture and posterior right ninth rib which would cause a pneumothorax in the first place. No other injury was found at the time. Patient was admitted under Dr. Jade service for trauma and requested consult medicine for medical management. 10/31: Repeat chest x-ray shows a less than 10% right apical pneumothorax. Patient has been acting [place] increase incentive spirometry. Chest tube may be removed later today if determined by cardiothoracic surgery. Patient has been hemodynamically stable. Anticipate discharge in the next 24-48 hours. Objective - Vital Signs Vital signs: Vital Signs Temp 98.9 F 10/31/16 08:00 Pulse 72 10/31/16 08:00 Resp 18 10/31/16 08:00 BP 115/61 10/31/16 08:00 Pulse Ox 95 10/31/16 08:56 Intake & Output 10/30/16 10/31/16 10/31/16 18:59 06:59 18:59 Intake Total 300 240 Output Total 6 409 Balance 294 -409 240 Intake: Oral 300 240 Output: Chest Tube Drainage 6 9 Chest Tube Right Upper 6 9 Mid-Axillary Chest Urine 400 Other: Voiding Method Toilet # Voids 0 - Exam General appearance: no average body habitus, cooperative, no disheveled, no mild distress, no morbidly obese, no acute distress, no obese, no severe distress, no thin - EENT Eyes: no abnormal pupil, no anicteric sclerae, no disc margins sharp, no edentulous, no EOMI, no PERRLA, no fundus normal, no photophobia, no dentition normal, no poor dentition, no ptosis, no scleral icterus, normal appearance ENT: no hard of hearing, no hearing grossly normal, no NA/AT, normal oropharynx , no other, no pharyngeal erythema, no thrush, no tonsillar exudates, no tonsillar swelling Ears: bilateral: normal - Neck Neck: no lymphadenopathy, normal ROM, no other, no rigidity, no stridor, no thyromegaly Carotids: bilateral: upstroke normal Thyroid: bilateral: normal size - Respiratory Chest wall area on the posterior lateral side of the rib cage had large scar from bruises related to the chest to trauma from the horse kick side. Respiratory: right: diminished, dullness, bilateral: rhonchi - Cardiovascular Rhythm: regular Heart sounds: normal: S1, S2 - Gastrointestinal General gastrointestinal: no absent bowel sounds, no decreased bowel sounds, no distended, no hepatomegaly, no hyperactive bowel sounds, normal bowel sounds, no organomegaly, no rigid, no scaphoid, soft, no splenomegaly, no tenderness, no umbilical hernia, no ventral hernia - Integumentary Mild bruise and trauma on the right lateral thigh area. Integumentary: no calor, no cellulitis, no cyanotic, no decreased turgor, no flushed, no jaundiced, normal, no normal turgor, pale, no rash, no ulcer - Neurologic Neurologic: CNII-XII intact - Musculoskeletal Musculoskeletal: gait normal, generalized weakness, no strength equal bilaterally, no right sided weakness, no left sided weakness - Psychiatric Psychiatric: A&O x's 3, appropriate affect - Labs CBC & Chem 7: 10/30/16 06:21 10/30/16 12:22 Labs: Abnormal Lab Results - Last 24 Hours (Table) 10/31/16 Range/Units 09:20 Urine Blood Trace H (Negative) Urine Bacteria Rare H (None) /hpf Urine Mucus Rare H (None) /hpf Assessment and Plan Plan: 1 traumatic pneumothorax: Patient had a chest tube in Dr. Bates was consulted continue to watch the improvement in the chest x-ray from day-to-day basis and hopefully chest tube would come out in 24 hours. 2 multiple rib fracture: Still have pain continue pain management and topical Lidoderm can be use along with incentive spirometry to lower the auto of having atelectasis or infection. 3 hypertension: Has been on losartan 75 mg a morning 50 in the evening and Dyazide once a day. 4 hyperlipidemia: Continue Lipitor daily. 5 hypothyroidism: Has been on Cytomel and Levoxyl resume both medication. 6 depression, recurrent: Has been on Lexapro. 7 chronic ALLERGY: Patient is using Singulair and decongestant medicine as needed. Pain management: Has been on Dilaudid will add smaller dose of [place] as needed. CODE STATUS: Full code. Discharge plan: Return home Impression and plan of care have been directed as dictated by the signing physician. Camila Corcoran nurse practitioner acting as scribe for signing physician.
[2016-11-01] MEDS: ESCITALOPRAM 5 MG TAB PO SCH (09:11)
[2016-11-01] MEDS: BISACODYL 5 MG TABLET.DR PO SCH (09:11)
[2016-11-01] MEDS: HEPARIN SODIUM,PORCINE 5,000 UNIT/ML 1 ML VIAL SQ SCH (09:12)
[2016-11-01] MEDS: MONTELUKAST 10 MG TAB PO SCH (09:12)
[2016-11-01] MEDS: LIOTHYRONINE SODIUM 5 MCG TAB PO SCH (09:12)
[2016-11-01] MEDS: FAMOTIDINE 20 MG TAB PO SCH (09:12)
[2016-11-01] MEDS: TRIAMTERENE-HCTZ 37.5-25MG 1 EACH CAP PO SCH (09:13)
--- NOTE | 2016-11-01 09:31 | P.PN ---
<Anne Oviedo - Last Filed: 11/01/16 09:27> Subjective Principal diagnosis: Right pneumothorax status post trauma after being kicked by a horse. POD #3 right pleural chest tube placement. Patient's currently sitting up in bed in no acute distress. Only concern was that she wanted her chest tube out. Objective - Vital Signs Vital signs: Vital Signs Temp 99.5 F 11/01/16 04:00 Pulse 74 11/01/16 04:00 Resp 16 11/01/16 04:00 BP 119/63 11/01/16 04:00 Pulse Ox 95 11/01/16 08:46 Intake & Output 10/31/16 11/01/16 11/01/16 18:59 06:59 18:59 Intake Total 720 480 Output Total 1200 5 Balance -480 475 Intake: Oral 720 480 Output: Chest Tube Drainage 5 Chest Tube Right Upper 5 Mid-Axillary Chest Urine 1200 0 Other: Voiding Method Toilet # Voids 1 2 - Constitutional General appearance: Present: cooperative, no acute distress - Respiratory Details: Lungs sounds diminished bilaterally. Respirations even, nonlabored. Currently on room air with oxygen saturation 95%. Able to achieve 1750 mL on her incentive spirometry. Right pleural chest tube to waterseal, 5 ml drainage overnight. No air leak present. - Cardiovascular Details: S1, S2 present. Regular rate and rhythm, normal sinus rhythm on telemetry. - Gastrointestinal Gastrointestinal Comment(s): Abdomen soft, nontender, nondistended. Active bowel sounds 4 quadrants. Tolerating diet. - Genitourinary Genitourinary Comment(s): Continues to void clear, yellow urine. - Musculoskeletal Musculoskeletal: Present: gait normal, strength equal bilaterally - Psychiatric Psychiatric: Present: A&O x's 3, appropriate affect, intact judgment & insight - Allied health notes Allied health notes reviewed: nursing - Labs CBC & Chem 7: 10/30/16 06:21 10/30/16 12:22 Labs: Abnormal Lab Results - Last 24 Hours (Table) 10/31/16 Range/Units 09:20 Urine Blood Trace H (Negative) Urine Bacteria Rare H (None) /hpf Urine Mucus Rare H (None) /hpf - Imaging and Cardiology Chest x-ray: report reviewed, image reviewed Assessment and Plan (1) Pneumothorax Status: Acute (2) Ribs, multiple fractures Status: Acute (3) Trauma of chest Status: Acute Plan: 1. Right pleural chest tube discontinued. We will obtain chest x-ray in one hour. If there is no change, it will be our recommendation that the patient can be discharged. 2. Medical management per primary care service. 3. Continue to encourage incentive spirometry. 4. Pain medication as ordered. Time with Patient: Greater than 30 <Tony Bates - Last Filed: 11/02/16 10:33> Subjective [employer] notes reviewed and accepted. Small pneumothorax stable on removal chest tube. Patient can be followed as an outpatient. Objective - Vital Signs Vital signs: Vital Signs Temp 97.6 F 11/01/16 08:00 Pulse 74 11/01/16 08:00 Resp 18 11/01/16 08:00 BP 123/71 11/01/16 08:00 Pulse Ox 95 11/01/16 08:46 Intake & Output 11/01/16 11/02/16 11/02/16 18:59 06:59 18:59 Intake Total 100 Output Total 5 Balance 95 Intake: Oral 100 Output: Chest Tube Drainage 5 Chest Tube Right Upper 5 Mid-Axillary Chest Other: Voiding Method Toilet - Labs CBC & Chem 7: 10/30/16 06:21 10/30/16 12:22
--- NOTE | 2016-11-01 10:51 | XR ---
EXAMINATION TYPE: XR chest 2V DATE OF EXAM: 11/01/2016 COMPARISON: 11/01/2016 HISTORY: post chest tube removal TECHNIQUE: Frontal and lateral views of the chest are obtained. FINDINGS: Right-sided chest tube has been removed. Right apical pneumothorax is unchanged from yesterday's exam ination. Estimated at approximately 10%. Subcutaneous air is seen along the right lateral chest wall. Heart size is stable. Mediastinal structures are stable and grossly unremarkable. No evidence for hilar prominence. Degenerative changes dorsal spine. IMPRESSION: 1. Chest tube removal with persistent right apical pneumothorax.
[2016-11-01] MEDS: ONDANSETRON 4 MG/2 ML VIAL IVP PRN (10:55)
[2016-11-01 11:14] VITALS: BP 123/71; RESP 18; TEMP 97.6
[2016-11-01] MEDS: FOLIC ACID 1 MG TAB PO SCH (13:47)
--- NOTE | 2016-11-02 08:32 | P.PN ---
Subjective 61-year-old female one of Dr. Fatimah He patient who has [facility] in [place] spend most of the summer and it was known to have history of hypertension, hyperlipidemia, hypothyroidism and previous history of West Nile virus has done well with it. 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 Patient developed immediately having significant shortness of breath with chest pain and tightness become severely worse. She brought to demurs department at [facility] were was seen and evaluated her wrap the chest x-ray showed a moderate size right apical pneumothorax without mediastinal shift ended up going for CT of the chest with the current finding the emergency physician and up putting a chest tube in drop the pneumothorax to bite 10% only the left the chest tube under negative waterseal and consulted cardiothoracic. Patient had the acute displaced fracture and posterior right ninth rib which would cause a pneumothorax in the first place. No other injury was found at the time. Patient was admitted under Dr. Jade service for trauma and requested consult medicine for medical management. 10/31: Repeat chest x-ray shows a less than 10% right apical pneumothorax. Patient has been acting [place] increase incentive spirometry. Chest tube may be removed later today if determined by cardiothoracic surgery. Patient has been hemodynamically stable. Anticipate discharge in the next 24-48 hours. 11/01: Repeat chest x-ray shows small persistent apical pneumothorax and small right pleural effusion. Patient has been afebrile and hemodynamically stable. Chest tube has now been off suction for 24 hours. Patient is scheduled for discharge home later today. Patient will be provided with a prescription for Zofran and [place]. Objective - Vital Signs Vital signs: Vital Signs Temp 99.5 F 11/01/16 04:00 Pulse 74 11/01/16 04:00 Resp 16 11/01/16 04:00 BP 119/63 11/01/16 04:00 Pulse Ox 95 11/01/16 04:00 Intake & Output 10/31/16 11/01/16 11/01/16 18:59 06:59 18:59 Intake Total 720 480 Output Total 1200 5 Balance -480 475 Intake: Oral 720 480 Output: Chest Tube Drainage 5 Chest Tube Right Upper 5 Mid-Axillary Chest Urine 1200 0 Other: Voiding Method Toilet # Voids 1 2 - Exam General appearance: no average body habitus, cooperative, no disheveled, no mild distress, no morbidly obese, no acute distress, no obese, no severe distress, no thin - EENT Eyes: no abnormal pupil, no anicteric sclerae, no disc margins sharp, no edentulous, no EOMI, no PERRLA, no fundus normal, no photophobia, no dentition normal, no poor dentition, no ptosis, no scleral icterus, normal appearance ENT: no hard of hearing, no hearing grossly normal, no NA/AT, normal oropharynx , no other, no pharyngeal erythema, no thrush, no tonsillar exudates, no tonsillar swelling Ears: bilateral: normal - Neck Neck: no lymphadenopathy, normal ROM, no other, no rigidity, no stridor, no thyromegaly Carotids: bilateral: upstroke normal Thyroid: bilateral: normal size - Respiratory Chest wall area on the posterior lateral side of the rib cage had large scar from bruises related to the chest to trauma from the horse kick side. Respiratory: right: diminished, dullness, bilateral: rhonchi - Cardiovascular Rhythm: regular Heart sounds: normal: S1, S2 - Gastrointestinal General gastrointestinal: no absent bowel sounds, no decreased bowel sounds, no distended, no hepatomegaly, no hyperactive bowel sounds, normal bowel sounds, no organomegaly, no rigid, no scaphoid, soft, no splenomegaly, no tenderness, no umbilical hernia, no ventral hernia - Integumentary Mild bruise and trauma on the right lateral thigh area. Integumentary: no calor, no cellulitis, no cyanotic, no decreased turgor, no flushed, no jaundiced, normal, no normal turgor, pale, no rash, no ulcer - Neurologic Neurologic: CNII-XII intact - Musculoskeletal Musculoskeletal: gait normal, generalized weakness, no strength equal bilaterally, no right sided weakness, no left sided weakness - Psychiatric Psychiatric: A&O x's 3, appropriate affect - Labs CBC & Chem 7: 10/30/16 06:21 10/30/16 12:22 Labs: Abnormal Lab Results - Last 24 Hours (Table) 10/31/16 Range/Units 09:20 Urine Blood Trace H (Negative) Urine Bacteria Rare H (None) /hpf Urine Mucus Rare H (None) /hpf Assessment and Plan Plan: 1 traumatic pneumothorax: Patient had a chest tube in Dr. Bates was consulted continue to watch the improvement in the chest x-ray from day-to-day basis and chest tube has been removed. 2 multiple rib fracture: Still have pain continue pain management and topical Lidoderm can be use along with incentive spirometry to lower the auto of having atelectasis or infection. 3 hypertension: Has been on losartan 75 mg a morning 50 in the evening and Dyazide once a day. 4 hyperlipidemia: Continue Lipitor daily. 5 hypothyroidism: Has been on Cytomel and Levoxyl resume both medication. 6 depression, recurrent: Has been on Lexapro. 7 chronic ALLERGY: Patient is using Singulair and decongestant medicine as needed. Pain management: Has been on Dilaudid will add smaller dose of [place] as needed. CODE STATUS: Full code. Discharge plan: Return home Impression and plan of care have been directed as dictated by the signing physician. Camila Corcoran nurse practitioner acting as scribe for signing physician.
== END 2016-11-01 13:47 | disposition home or self-care (01) | DRG 200 ==
LOC: EC 17:29 → 6SEL 20:51
PROVIDERS: ADMIT Surgery; ATTEND Surgery
PROC: 0W9930Z Drainage of Right Pleural Cavity with Drainage Device, Percutaneous Approach (ICD-10-PCS; principal; 2016-10-29)
DX: S27.0XXA Traumatic pneumothorax, initial encounter (principal); F33.9 Major depressive disorder, recurrent, unspecified; S22.41XA Multiple fractures of ribs, right side, initial encounter for closed fracture; I10 Essential (primary) hypertension; E03.9 Hypothyroidism, unspecified; S20.221A Contusion of right back wall of thorax, initial encounter; S20.211A Contusion of right front wall of thorax, initial encounter; S70.11XA Contusion of right thigh, initial encounter; E78.5 Hyperlipidemia, unspecified; F41.9 Anxiety disorder, unspecified; J30.9 Allergic rhinitis, unspecified; Z80.3 Family history of malignant neoplasm of breast; Z88.0 Allergy status to penicillin; Z86.19 Personal history of other infectious and parasitic diseases; Z79.890 Hormone replacement therapy; Z79.899 Other long term (current) drug therapy; Z86.39 Personal history of other endocrine, nutritional and metabolic disease; Z87.42 Personal history of other diseases of the female genital tract; Z83.49 Family history of other endocrine, nutritional and metabolic diseases; W55.12XA Struck by horse, initial encounter; Y93.K9 Activity, other involving animal care; Y92.71 Barn as the place of occurrence of the external cause
CPT/HCPCS: 32551; 36415; 71010; 71020; 71260; 80048; 80053; 81001; 84132; 85025; 86850; 86900; 86901; 93005; 94760; 96374; 96375; 99291